=== PATIENT | female | born 1995 | race Hispanic/Latino ===

== ENCOUNTER 2023-01-06 19:25 | Emergency (ER) | payer OTHER ==
[~2023-01-06] VITALS: Ht 170.2 cm; Wt 99.3 kg
[2023-01-06 20:37] VITALS: BP 132/60; PULSE 98; RESP 14; O2SAT 98
[2023-01-06] MEDS ORDERED: AMOX1TAB16 PO (21:07)
[2023-01-06] MEDS ORDERED: IBUP-1493 PO (21:07)
[2023-01-06] MEDS ORDERED: CEFTRIAXONE 1G VIAL IVPB ONE (21:30)
== END 2023-01-06 21:27 | disposition home or self-care (01) ==
LOC: EDH 19:25
DX: N61.0 Mastitis without abscess (principal); Z98.890 Other specified postprocedural states
CPT/HCPCS: 99284; 96365; J0696

== ENCOUNTER 2023-02-02 19:37 | Emergency (ER) | payer OTHER ==
[~2023-02-02] VITALS: Ht 170.2 cm; Wt 99.8 kg
[~2023-02-02 19:37] MED LIST: AMOX1TAB16 PO; IBUP-1493 PO
[2023-02-02 19:38] VITALS: BP 126/71; PULSE 101; RESP 20
[2023-02-02 20:17] LABS: RAPID GROUP A STREP positive (NEGATIVE)
[2023-02-02 20:26] LABS: SARS-CoV-2, RNA, NAAT NEGATIVE SARS CoV-2 (NEGATIVE)
[2023-02-02 20:27] LABS: INFLUENZA TYPE A Negative For Type A (NEGATIVE); INFLUENZA TYPE B Negative For Type B (NEGATIVE)
[2023-02-02] MEDS ORDERED: AMOX1TAB16 PO (20:29)
[2023-02-02] MEDS ORDERED: IBUP-1493 PO (20:29)
== END 2023-02-02 21:06 | disposition home or self-care (01) ==
LOC: EDH 19:37
DX: J02.0 Streptococcal pharyngitis (principal); N61.0 Mastitis without abscess; Z79.1 Long term (current) use of non-steroidal anti-inflammatories (NSAID); Z20.822 Contact with and (suspected) exposure to COVID-19
CPT/HCPCS: 99283; 87635; 87880; 87804 ×2; C9803